=== PATIENT | male | born 1960 | race Caucasian/White ===

== ENCOUNTER 2017-09-07 10:11 | Emergency (ER) | payer MEDICAID, OTHER ==
[2017-09-07] MEDS ORDERED: Sodium Chloride 0.9% 10 ML Syringe FLUSH PRN (10:13)
[2017-09-07] MEDS ORDERED: Ondansetron 4 MG/2 ML SDV IVPUSH ONE (10:13)
[2017-09-07] MEDS ORDERED: Sodium Chloride 0.9% 2.5 ML Syringe FLUSH PRN (10:13)
[2017-09-07] MEDS ORDERED: HYDROmorphone 1 MG/ML Syringe IV ONE (10:13)
[2017-09-07] MEDS ORDERED: Lidocaine 1% 20 ML MDV ONE (10:13)
[2017-09-07] MEDS ORDERED: Sodium Chloride 0.9% 1,000 ML IV ONE (10:14)
[2017-09-07] MEDS ORDERED: Bupivacaine 0.5% 10 ML SDV ONE (10:15)
[2017-09-07] MEDS ORDERED: HYDROmorphone 1 MG/ML Syringe ONE (10:16)
[2017-09-07] MEDS ORDERED: Lactated Ringers 1,000 ML IV SCH (10:30)
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
[2017-09-07] MEDS ORDERED: Midazolam 1 MG/ML 2 ML SDV ONE (10:45)
[2017-09-07] MEDS ORDERED: Propofol 200 MG/20 ML SDV ONE (10:45)
--- NOTE | 2017-09-07 10:48 | PCM.PREANE ---
Preanesthetic Assessment - Anesthesia/Transfusion/Family Hx Anesthesia History: Prior Anesthesia Without Reaction - Review of Systems General: No Symptoms Pulmonary: No Symptoms Cardiovascular: No Symptoms Gastrointestinal: No Symptoms Neurological: No Symptoms Other: Reports: None - Physical Assessment O2 Sat by Pulse Oximetry: 95 Respiratory Rate: 20 Vital Signs: Last Vital Signs Temp 96.3 F 09/07/17 10:16 Pulse 55 L 09/07/17 10:16 Resp 20 09/07/17 10:16 BP 118/76 09/07/17 10:16 Pulse Ox 95 09/07/17 10:16 Height: 5 ft 10 in Weight: 111.13 kg ASA Class: 2E Mental Status: Alert & Oriented x3 Airway Class: Mallampati = 2 Dentition: Reports: Normal Dentition Thyro-Mental Finger Breadths: 2 Mouth Opening Finger Breadths: 2 ROM/Head Extension: Full Lungs: Clear to Auscultation, Normal Respiratory Effort Cardiovascular: Regular Rate, Regular Rhythm - Lab Values: Laboratory Last Values WBC 7.52 K/uL (4.0-11.0) 09/07/17 10:22 RBC 4.94 M/uL (4.50-5.90) 09/07/17 10:22 Hgb 14.7 g/dL (13.0-17.0) 09/07/17 10:22 Hct 42.4 % (38.0-50.0) 09/07/17 10:22 MCV 85.8 fL (80.0-98.0) 09/07/17 10:22 MCH 29.8 pg (27.0-32.0) 09/07/17 10:22 MCHC 34.7 g/dL (31.0-37.0) 09/07/17 10:22 RDW Std Deviation 43.6 fl (28.0-62.0) 09/07/17 10:22 RDW Coeff of Christina 14 % (11.0-15.0) 09/07/17 10:22 Plt Count 233 K/uL (150-400) 09/07/17 10:22 MPV 10.90 fL (7.40-12.00) 09/07/17 10:22 Neut % (Auto) 63.6 % (48.0-80.0) 09/07/17 10:22 Lymph % (Auto) 27.1 % (16.0-40.0) 09/07/17 10:22 [place]rick % (Auto) 5.6 % (0.0-15.0) 09/07/17 10:22 Eos % (Auto) 3.2 % (0.0-7.0) 09/07/17 10:22 Baso % (Auto) 0.5 % (0.0-1.5) 09/07/17 10:22 Neut # (Auto) 4.8 K/uL (1.4-5.7) 09/07/17 10:22 Lymph # (Auto) 2.0 K/uL (0.6-2.4) 09/07/17 10:22 [place]rick # (Auto) 0.4 K/uL (0.0-0.8) 09/07/17 10:22 Eos # (Auto) 0.2 K/uL (0.0-0.7) 09/07/17 10:22 Baso # (Auto) 0.0 K/uL (0.0-0.1) 09/07/17 10:22 Nucleated RBC % 0.0 /100WBC 09/07/17 10:22 Nucleated RBCs # 0 K/uL 09/07/17 10:22 - Allergies Allergies/Adverse Reactions: Allergies Allergy/AdvReac Type Severity Reaction Status Date / Time No Known Allergies Allergy Verified 09/07/17 10:15 - Acknowledgements Anesthesia Type Planned: MAC Pt an Appropriate Candidate for the Planned Anesthesia: Yes Alternatives and Risks of Anesthesia Discussed w Pt/Guardian: Yes Pt/Guardian Understands and Agrees with Anesthesia Plan: Yes PreAnesthesia Questionnaire HEENT History: Reports: None Cardiovascular History: Reports: Syncope Respiratory History: Reports: COPD Gastrointestinal History: Reports: None Genitourinary History: Reports: None Musculoskeletal History: Reports: None Neurological History: Reports: None Psychiatric History: Reports: None Endocrine/Metabolic History: Reports: None Hematologic History: Reports: None Immunologic History: Reports: None Oncologic (Cancer) History: Reports: None Dermatologic History: Reports: None - Infectious Disease History Infectious Disease History: Reports: Other (See Below) (Unknown Lt leg infection years ago following traumatic open fracture) - Past Surgical History Musculoskeletal Surgical History: Reports: Other (See Below) (Multiple surgery to Left leg ORIF) - HOME MEDS Home Medications: Home Meds . [No Known Home Meds] 09/07/17 [History] - CURRENT (IN HOUSE) MEDS Current Meds: Current Medications Sodium Chloride (Normal Saline) 1,000 mls @ 999 mls/hr IV STAT ONE Stop: 09/07/17 11:14 Last Admin: 09/07/17 10:14 Dose: 999 mls/hr Sodium Chloride (Saline Flush) 10 ml FLUSH ASDIRECTED PRN PRN Reason: Keep Vein Open Sodium Chloride (Saline Flush) 2.5 ml FLUSH ASDIRECTED PRN PRN Reason: Keep Vein Open Discontinued Medications Bupivacaine HCl (Sensorcaine-Mpf 0.5%) Confirm Administered Dose 10 ml .ROUTE .STK-MED ONE Stop: 09/07/17 10:16 Last Admin: 09/07/17 10:24 Dose: 10 ml Hydromorphone HCl (Dilaudid) 0.5 mg IV ONETIME ONE Stop: 09/07/17 10:14 Last Admin: 09/07/17 10:19 Dose: 0.5 mg Hydromorphone HCl (Dilaudid) Confirm Administered Dose 1 mg .ROUTE .STK-MED ONE Stop: 09/07/17 10:17 Last Admin: 09/07/17 10:27 Dose: Not Given Lidocaine HCl (Xylocaine 1%) Confirm Administered Dose 20 ml .ROUTE .STK-MED ONE Stop: 09/07/17 10:14 Last Admin: 09/07/17 10:24 Dose: Not Given Ondansetron HCl (Zofran) 4 mg IVPUSH ONETIME ONE Stop: 09/07/17 10:14 Last Admin: 09/07/17 10:24 Dose: 4 mg
[2017-09-07 10:57] LABS: CHLORIDE,CL 102 mmol/L (98-110); SODIUM,NA 137 mmol/L (136-146)
--- NOTE | 2017-09-07 11:06 | CR ---
EXAMINATION: Right ankle and right tibia and fibula HISTORY: Pain COMPARISON: None TECHNIQUE: 2 views of the right ankle and 2 views of the right tibia and fibula FINDINGS: There is a notably displaced oblique distal fibular fracture. There is a medial malleolus f racture with complete medial dislocation of the tibia. The talar dome appears intact. The proximal tibia and fibula appear grossly intact. Bone mineralization appears normal. Adjacent sof t tissue swelling is noted. IMPRESSION: 1. Medial and lateral malleolus fractures. 2. Complete medial dislocation of the tibia at the tibiotalar joint.
--- NOTE | 2017-09-07 11:07 | CR ---
EXAMINATION: Portable chest radiograph. HISTORY: Shortness of breath. FINDINGS: The trachea is midline. The cardiomediastinal silhouette is within normal limits. Trace right perihil ar infiltrate. No pleural effusion or pneumothorax. Osseous structures appear unremarkable. IMPRESSION: Trace right perihilar infiltrate within a slight nodular appearance. Short-term follow-up may be bene ficial.
--- NOTE | 2017-09-07 11:10 | CT ---
EXAMINATION: Non contrast CT head. Coronal and sagittal reformats. HISTORY: Pain FINDINGS: No evidence of intra or extra axial hemorrhage, mass, midline shift, hydrocephalus or edema. No hypoattenuation changes in the major vascular territories to suggest acute infarct. No abnormal intracranial calcifications are detected. No evidence of substantial vascular calcificat ions. Small mucous retention cyst within the left maxillary sinus. The mastoid air cells are clear. Pituitary fossa appears unremarkable. Old left lamina papyracea fracture. Otherwise the orbits and gl obes appear intact. Calvarium is intact. No evidence of skull fracture. IMPRESSION: No acute intracranial findings.
[2017-09-07] MEDS ORDERED: Bacitracin/Neomycin/Polymyxin B Oint 28.4 GM Tube ONE (11:20)
--- NOTE | 2017-09-07 11:22 | PCM.POSTAN ---
POST ANESTHESIA ASSESSMENT - MENTAL STATUS Mental Status: Alert, Oriented - RESPIRATORY Respiratory Status: Respiratory Rate WNL, Airway Patent, O2 Saturation Stable - CARDIOVASCULAR CV Status: Pulse Rate WNL, Blood Pressure Stable - GASTROINTESTINAL GI Status: No Symptoms - POST OP HYDRATION Hydration Status: Adequate & Stable
--- NOTE | 2017-09-07 11:22 | PCM48HPAN ---
Post Anesthesia Note - EVALUATION WITHIN 48HRS OF ANESTHETIC Vital Signs in Normal Range: Yes Patient Participated in Evaluation: Yes Respiratory Function Stable: Yes Airway Patent: Yes Cardiovascular Function Stable: Yes Hydration Status Stable: Yes Pain Control Satisfactory: Yes Nausea and Vomiting Control Satisfactory: Yes Mental Status Recovered: Yes
[2017-09-07] MEDS ORDERED: ceFAZolin 1 GM in Premix Bag 1 BAG IV ONE (11:30)
--- NOTE | 2017-09-07 11:43 | CR ---
EXAMINATION: Right ankle HISTORY: Fracture COMPARISON: Same day TECHNIQUE: 2 views FINDINGS/IMPRESSION: Post reduction imaging demonstrates the distal fibular and medial malleolus frac tures again noted. The distal tibia has been reduced however persists with approximately 1.4 cm of me dial subluxation. A small posterior malleolus component is not excluded.
[2017-09-07] MEDS ORDERED: Bacitracin Oint 28.35 GM Tube TOP SCH (14:00)
== END 2017-09-07 12:15 ==
LOC: MW.ED 10:11
DX: S82.841B Displaced bimalleolar fracture of right lower leg, initial encounter for open fracture type I or II (principal); R55 Syncope and collapse; W19.XXXA Unspecified fall, initial encounter; Y92.009 Unspecified place in unspecified non-institutional (private) residence as the place of occurrence of the external cause
CPT/HCPCS: 27810; 36415; 70450; 71045; 73590; 73600; 80053; 84484; 85025; 85610; 96361; 96365; 96374; 96375; 99152; 99285; J0690; J1170; J2405; J7040; J7120; 01462; 99284

== ENCOUNTER 2017-11-04 20:23 | Emergency (ER) | payer OTHER ==
[2017-11-04] MEDS ORDERED: Aspirin 81 MG Tab.Chew PO ONE (20:25)
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
[2017-11-04] MEDS ORDERED: Sodium Chloride 0.9% 1,000 ML IV SCH (20:30)
[2017-11-04 21:23] LABS: CHLORIDE,CL 96 mmol/L (98-107); SODIUM,NA 133 mmol/L (136-148)
--- NOTE | 2017-11-06 13:34 | CR ---
EXAM DATE: 11/04/17 PATIENT'S AGE: 56 Patient: JENNIFER SANTANA Facility: [place], [place] Site . Site : 1960 Study: XRay Chest [id number]/7/2018 9:45:52 PM Ordering Physician: Elan Canales Final Report: INDICATION: 2 episodes of syncope today. TECHNIQUE: Chest radiograph 1 view COMPARISON: 10/30/2017. FINDINGS: Cardiovascular and mediastinum: The heart silhouette is normal in size and morphology. The mediastinum is normal in appearance. Lungs and pleural spaces: Both lungs are unremarkable in appearance. No sign of pleural effusion seen. No pneumothorax is identified. Stable calcified nodule in the right lower lung zone, likely granuloma. Bones and soft tissues: No significant findings. IMPRESSION: 1. No acute cardiopulmonary disease is seen. Dictated by Jun Cast MD @ 11/04/2017 10:01:19 PM Dictated by: Jun Cast MD @ 11/04/2017 22:01:26 (Electronic Signature) Report Signed by Proxy. ALICE HYDE MEDICAL CENTERAlfonzo
--- NOTE | 2017-11-06 13:35 | CT ---
EXAM DATE: 11/04/17 PATIENT'S AGE: 56 Patient: JENNIFER SANTANA Facility: [place], [place] Site . Site : 1960 Study: CT Head [id number]/7/2018 9:46:16 PM Ordering Physician: Elan Canales Final Report: INDICATION: Syncope. TECHNIQUE: Noncontrast CT of the brain was performed with images acquired from skull base to vertex. COMPARISON: None available. FINDINGS: There is no acute intracranial hemorrhage. Ventricles are of normal size and morphology. No mass effect or midline shift is present. The reddy-white matter differentiation is normal. The visualized portions of the orbits are normal. The visualized portions of the mastoids are normal. The visualized portions of the paranasal sinuses are normal. No fractures are identified. There is atherosclerotic calcification in both carotid siphons. IMPRESSION: No acute intracranial abnormality. Please note that all CT scans at this facility use dose modulation, iterative reconstruction, and/or weight-based dosing when appropriate to reduce radiation dose to as low as reasonably achievable. Dictated by Deondre Hardy MD @ Nov 04 2017 9:51PM (Electronic Signature) Report Signed by Proxy. MEG
== END 2017-11-04 22:06 | disposition home or self-care (01) ==
LOC: MW.ED 20:23
DX: R29.818 Other symptoms and signs involving the nervous system (principal); J44.9 Chronic obstructive pulmonary disease, unspecified; Z79.899 Other long term (current) drug therapy; Z86.14 Personal history of Methicillin resistant Staphylococcus aureus infection; Z98.890 Other specified postprocedural states
CPT/HCPCS: 36415; 70450; 71045; 80053; 82550; 82553; 84484; 85025; 85610; 93005; 96360; 96361; 99285; A9270; G0480; J7040

== ENCOUNTER 2018-01-11 11:39 | Day surgery (SDC) | payer MEDICAID ==
[~2018-01-11 11:39] MED LIST: Lactated Ringers 1,000 ML IV SCH; Midazolam 1 MG/ML 2 ML SDV ONE; Propofol 200 MG/20 ML SDV ONE; fentaNYL 100 MCG/2 ML SDV ONE
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
[2018-01-11] MEDS ORDERED: Glycopyrrolate 0.2 MG/ML SDV ONE (12:18)
[2018-01-11] MEDS ORDERED: Propofol 200 MG/20 ML SDV ONE (12:22)
--- NOTE | 2018-01-11 12:49 | PCM.OPNOTE ---
- General Post-Op/Procedure Note Date of Surgery/Procedure: 01/11/18 Operative Procedure(s): colonoscopy w snare polypectomy Findings: see dict [id number] Pre Op Diagnosis: scrn colonoscopy Post-Op Diagnosis: polyp Anesthesia Technique: Moderate Sedation Primary Surgeon: Blake Silva Pathology: 10 mm pedunculate polyp at 30 cm when scope pulled out Complications: None Condition: Good
--- NOTE | 2018-01-11 13:21 | PCM48HPAN ---
Post Anesthesia Note - EVALUATION WITHIN 48HRS OF ANESTHETIC Vital Signs in Normal Range: Yes Patient Participated in Evaluation: Yes Respiratory Function Stable: Yes Airway Patent: Yes Cardiovascular Function Stable: Yes Hydration Status Stable: Yes Pain Control Satisfactory: Yes Nausea and Vomiting Control Satisfactory: Yes Mental Status Recovered: Yes Resp Rate: 8
--- NOTE | 2018-01-11 13:46 | OR ---
SURGEON: Blake Silva MD DATE OF PROCEDURE: 01/11/2018 PREOPERATIVE DIAGNOSIS: Screening colonoscopy. POSTOPERATIVE DIAGNOSIS: Colon polyp. PROCEDURE PERFORMED: Colonoscopy with snare polypectomy. PROCEDURE IN DETAIL: The patient was taken to the endoscopy room. A time out was called, patient identified, and procedure identified. Diprivan was then administrated. Patient went from awake to sleep, hearing doctor talking or door closing is normal. Perineum inspection and digital examination were then performed. A well- lubricated colonoscope was gently inserted through the rectum, advanced past the rectosigmoid junction, the descending colon, splenic flexure, transverse colon, hepatic flexure, ascending colon, arrived to the cecum. Cecum was identified as dictated in the finding. Then the scope was carefully withdrawn while attention was paid to the mucosal surface for any abnormality. Air will be sucked out during the scope withdrawal. At the rectum, retroflexed to examine any rectal diseases, fistula or hemorrhoids. During mucosal examination, abnormality or polyp encountered. Using snare equipment, the abnormality or the polyp was then snared off using electrocautery. The Patient tolerated procedure well. There were no intraoperative complications, and Dr. Silva was present throughout the whole procedure. FINDINGS: 1. The patient is easily sedated with REBRANDER and Diprivan. The patient is soundly snoring. 2. Bowel prep is left to be desirable, quite a lot of opaque stool. No semi- formed stool. 3. Colon is rather straight forward. Cecum indicated by ileocecal fold, one- to-one indentation, appendiceal orifice. Light emittance is not observed. Mucosa examined upon scope pulling out with constant irrigation because of the bowel prep is compromised study with a bowel prep. The patient has a large polyp 10 mm at distance of 30 when the scope pulling out. It was removed with snare polypectomy. Other than that, the patient does not have diverticulosis, mass, growth, inflammation, AV malformation, ulceration, bleeding, none of those. The patient has mild internal hemorrhoids. No external hemorrhoids. The patient would benefit from repeat colonoscopy in 3 years from today or if clinically indicated otherwise or if the pathology of the polyp indicated otherwise. BEAU / LONNIE /[id number]
== END 2018-01-11 13:25 | disposition home or self-care (01) ==
LOC: MW.SDS 11:39
PROVIDERS: ATTEND Surgery
DX: Z12.11 Encounter for screening for malignant neoplasm of colon (principal); D12.5 Benign neoplasm of sigmoid colon; D12.0 Benign neoplasm of cecum; K64.8 Other hemorrhoids; J44.9 Chronic obstructive pulmonary disease, unspecified; E66.9 Obesity, unspecified; Z68.39 Body mass index [BMI] 39.0-39.9, adult; Z79.51 Long term (current) use of inhaled steroids; Z79.899 Other long term (current) drug therapy
CPT/HCPCS: 45385; J2250; J3010; J7120; 00811; 88305; J2704